=== PATIENT | female | born 1940 | race Caucasian/White ===

== ENCOUNTER 2018-11-16 20:48 | Inpatient (IN) | payer OTHER, MEDICAID ==
[2018-11-16 21:14] LABS: HEMOGLOBIN 12.2 gm/dL (12-16); MEAN CORPUSCULAR HEMOGLOBIN 20.9 pg (27.0-31.0); MEAN PLATELET VOLUME 7.6 fl; PLATELET COUNT 268 Th/cmm (150-400); RED BLOOD COUNT 5.81 Mil/cmm (3.80-5.20); RED CELL DISTRIBUTION WIDTH 14.4 % (11.5-20.0)
[2018-11-16 21:27] LABS: INR 1.06 (0.5-1.4)
[2018-11-16 21:30] LABS: ALB/GLOB RATIO 1.1 (1.0-1.8); ALBUMIN 3.6 gm/dL (3.7-5.3); ALKALINE PHOSPHATASE 80 U/L (34-104); ANION GAP 13.5 (7.0-16.0); BILIRUBIN,TOTAL 1.7 mg/dL (0.3-1.0); BUN - UREA NITROGEN 15 mg/dL (7-25); CALCIUM SERUM 9.2 mg/dL (8.6-10.3); CARBON DIOXIDE 23.5 mEq/L (21.0-31.0); CHLORIDE 101 mEq/L (98-107); CREATININE - SERUM 0.6 mg/dL (0.6-1.2); CREATININE KINASE 35 U/L (30-223); GLUCOSE 184 mg/dL (70-105); SGOT 27 U/L (13-39); SGPT/ALT 22 U/L (7-52); SODIUM SERUM 134 mEq/L (136-145); TOTAL PROTEIN,SERUM 6.8 gm/dL (6.0-8.3)
[2018-11-16] MEDS ORDERED: Sodium Chloride 0.9% 1,000 ML IV ONE (22:03)
[2018-11-16] MEDS ORDERED: cefTRIAXone 1 GM in Sodium Chloride 0.9% 50 ML IV ONE (22:03)
[2018-11-16 22:07] LABS: BAND NEUTROPHILE 0 % (0-10); EOSINOPHIL 1 % (0-5); LYMPHOCYTE 8 % (20-50); MONOCYTE 6 % (2-10); NEUTROPHILS 85 % (40-80)
[2018-11-16 22:14] LABS: % EOSINOPHILS 0.2 % (0.0-5.0); % LYMPHOCYTES 8.5 % (20.0-50.0); % MONOCYTES 5.4 % (2.0-10.0); % NEUTROPHILS 85.9 % (40.0-80.0)
[2018-11-16 22:14] LABS: URINE SOURCE MIDSTREAM
[2018-11-16 22:19] LABS: URINE BILIRUBIN NEGATIVE (NEGATIVE); URINE BLOOD MODERATE (NEGATIVE); URINE GLUCOSE (UA) NEGATIVE (NEGATIVE); URINE KETONE NEGATIVE (NEGATIVE); URINE LEUKOCYTE ESTERASE SMALL (NEGATIVE); URINE MICROSCOPIC INDICATED? YES; URINE NITRATE NEGATIVE (NEGATIVE); URINE PROTEIN NEGATIVE (NEGATIVE)
[2018-11-16 23:00] LABS: URINE CLARITY HAZY (CLEAR); URINE COLOR YELLOW
[2018-11-16 23:12] LABS: URINE BACTERIA FEW /hpf (NONE SEEN); URINE EPITHELIAL CELLS OCCASIONAL /lpf (FEW)
--- NOTE | 2018-11-16 23:46 | ED Physician Chart ---
ED Chief Complaint/HPI - Patient Information Date Seen:: 11/16/18 Time Seen:: 20:50 Chief Complaint:: Fever History of Present Illness:: onset x 2 days of fever, weakness, and lethargy; no report of trauma, LOC, ALOC , AMS, H/As, S/T, neck pain, cough, C/P, SOB, Abd. Pain, A/N/V/D/C, chills, or urinary s/s Allergies:: Allergies Allergy/AdvReac Type Severity Reaction Status Date / Time No Known Allergies Allergy Verified 11/16/18 20:49 Vitals:: Vital Signs - 8 hr 11/16/18 11/16/18 20:49 22:37 Temp 99.0 F 98 F HR 97 76 RR 20 16 BP 116/89 108/52 O2 Sat % 95 97 Historian:: Patient, EMS Review:: Nurse's Note Reviewed, Old Chart Reviewed, EMS run form Reviewed <Mikhail Jones - Last Filed: 11/17/18 06:33> - Patient Information Allergies:: Allergies Allergy/AdvReac Type Severity Reaction Status Date / Time No Known Allergies Allergy Verified 11/16/18 20:49 Vitals:: Vital Signs - 8 hr 11/17/18 11/17/18 00:39 02:08 Temp 97.2 F 97.1 F HR 72 65 RR 18 14 BP 91/49 123/63 O2 Sat % 97 98 <Riki Silva - Last Filed: 11/17/18 07:37> ED Review of Systems - Review of Systems General/Constitutional: Fever, No chills, No weight loss, No weakness, No diaphoresis, No edema, No loss of appetite Skin: No skin lesions, No rash, No bruising Head: No headache, No light-headedness Eyes: No loss of vision, No pain, No diplopia ENT: No earache, No nasal drainage, No sore throat, No tinnitus Neck: No neck pain, No swelling, No thyromegaly, No stiffness, No mass noted Cardio Vascular: No chest pain, No palpitations, No PND, No orthopnea, No edema Pulmonary: No SOB, No cough, No sputum, No wheezing GI: No nausea, No vomiting, No diarrhea, No pain, No melena, No hematochezia, No constipation, No hematemesis G/U: No dysuria, No frequency, No hematuria, No nacturia Transitional Care Manager: No vaginal discharge, No abnormal vaginal bleed, No contraction Musculoskeletal: No bone or joint pain, No back pain, No muscle pain Endocrine: No polyuria, No polydipsia Psychiatric: No prior psych history, No depression, No anxiety, No suicidal ideation, No homicidal ideation, No auditory hallucination, No visual hallucination Hematopoietic: No bruising, No lymphadenopathy Allergic/Immuno: No urticaria, No angioedema Neurological: No syncope, No focal symptoms, No weakness, No paresthesia, No headache, No seizure, No dizziness, Confusion, No vertigo <Mikhail Jones - Last Filed: 11/17/18 06:33> ED Past Medical History - Past Medical History Obtainable: Yes Past Medical History: HTN, Thyroid disorder, Dementia Family History: HTN Social History: Non Smoker, No Alcohol, No Drug Use, , Care Facility Surgical History: None Psychiatricy History: Dementia Medication: Reviewed <ElzbietayrisMikhail herring Marquise Filed: 11/17/18 06:33> Family Medical History - Family Member Mother History Unknown: Yes <Mikhail Jones Filed: 11/17/18 06:33> ED Physical Exam - Physical Examination General/Constitutional: Awake, Well-developed, well-nourished, Alert, No distress, GCS 15, Non-toxic appearing, Ambulatory Head: Atraumatic Eyes: Lids, conjuctiva normal, PERRL, EOMI Skin: Nl inspection, No rash, No skin lesions, No ecchymosis, Well hydrated, No lymphadenopathy ENMT: External ears, nose nl, TM canals nl, Nasal exam nl, Lips, teeth, gums nl , Oropharynx nl, Tonsils nl Neck: Nontender, Full ROM w/o pain, No JVD, No nuchal rigidity, No bruit, No mass, No stridor Respiratory: Nl effort/Exclusion, Clear to Auscultation, No Wheeze/Rhonchi/Rales Cardio Vascular: RRR, No murmur, gallop, rubs, NL S1 S2, Carotid/Femoral/Distal pulses equal bilaterally GI: No tenderness/rebounding/guarding, No organomegaly, No hernia, Normal BS's, Nondistended, No mass/bruits, No McBurney tenderness, Rectum exam nl Other GI comments:: no pulsatile masses : No CVA tenderness Extremities: No tenderness or effusion, Full ROM, normal strength in all extremities, No edema, Normal digits & nails Neuro/Psych: Alert/oriented, DTR's symmetric, Normal sensory exam, Normal motor strength, Judgement/insight normal, Mood normal, Normal gait, No focal deficits Misc: Normal back, No paraspinal tenderness <Mikhail Jones - Last Filed: 11/17/18 06:33> ED Labs/Radiology/EKG Results - Lab Results Results: Laboratory Tests 11/16/18 11/16/18 11/16/18 21:04 21:04 21:04 WBC 13.0 H RBC 5.81 H Hgb 12.2 Hct 38.0 L MCH 20.9 L MCHC Differential 32.0 RDW 14.4 Plt Count 268 MPV 7.6 Add Manual Diff YES Neutrophils % 85.9 H Band Neutrophils % 0 Lymphocytes % 8.5 L Monocytes % 5.4 Eosinophils % 0.2 Basophils % 0.0 Neutrophils (Manual) 85 H Lymphocytes 8 L Monocytes 6 Eosinophils 1 Microcytosis 3+ PT 11.0 INR 1.06 PTT (Actin FS) 27.2 Sodium 134 L Potassium 4.0 Chloride 101 Carbon Dioxide 23.5 Anion Gap 13.5 BUN 15 Creatinine 0.6 Est GFR ( Amer) TNP Est GFR (Non-Af Amer) TNP BUN/Creatinine Ratio 25.0 Glucose 184 H Whole Bld Lactic Acid Calcium 9.2 Total Bilirubin 1.7 H AST 27 ALT 22 Alkaline Phosphatase 80 Creatine Kinase 35 Troponin I Total Protein 6.8 Albumin 3.6 L Globulin 3.2 Albumin/Globulin Ratio 1.1 Urine Source Urine Color Urine Clarity Urine pH Ur Specific [place] Urine Protein Urine Glucose (UA) Urine Ketones Urine Blood Urine Nitrate Urine Bilirubin Urine Urobilinogen Ur Leukocyte Esterase Urine RBC Urine WBC Ur Epithelial Cells Urine Bacteria 11/16/18 11/16/18 11/16/18 21:04 21:04 21:39 WBC RBC Hgb Hct MCH MCHC Differential RDW Plt Count MPV Add Manual Diff Neutrophils % Band Neutrophils % Lymphocytes % Monocytes % Eosinophils % Basophils % Neutrophils (Manual) Lymphocytes Monocytes Eosinophils Microcytosis PT INR PTT (Actin FS) Sodium Potassium Chloride Carbon Dioxide Anion Gap BUN Creatinine Est GFR ( Amer) Est GFR (Non-Af Amer) BUN/Creatinine Ratio Glucose Whole Bld Lactic Acid 2.91 H* Calcium Total Bilirubin AST ALT Alkaline Phosphatase Creatine Kinase Troponin I 0.02 Total Protein Albumin Globulin Albumin/Globulin Ratio Urine Source [place] Urine Color YELLOW Urine Clarity HAZY Urine pH 6.0 Ur Specific [place] 1.025 Urine Protein NEGATIVE Urine Glucose (UA) NEGATIVE Urine Ketones NEGATIVE Urine Blood MODERATE H Urine Nitrate NEGATIVE Urine Bilirubin NEGATIVE Urine Urobilinogen 2.0 Ur Leukocyte Esterase SMALL H Urine RBC 5-10 H Urine WBC 2-5 Ur Epithelial Cells OCCASIONAL Urine Bacteria FEW Comments:: Reviewed - Radiology Results Comments:: NAD - EKG Interpretations EKG Time:: 21:19 Rate & Rhythm: 87; NSR Comments:: non-specific st-t changes <Mikhail Jones - Last Filed: 11/17/18 06:33> - Lab Results Results: Laboratory Tests 11/16/18 11/16/18 11/16/18 21:04 21:04 21:04 WBC 13.0 H RBC 5.81 H Hgb 12.2 Hct 38.0 L MCV 65.4 L MCH 20.9 L MCHC Differential 32.0 RDW 14.4 Plt Count 268 MPV 7.6 Add Manual Diff YES Neutrophils % 85.9 H Band Neutrophils % 0 Lymphocytes % 8.5 L Monocytes % 5.4 Eosinophils % 0.2 Basophils % 0.0 Neutrophils (Manual) 85 H Lymphocytes 8 L Monocytes 6 Eosinophils 1 Platelet Estimate ADEQUATE Microcytosis 3+ PT 11.0 INR 1.06 PTT (Actin FS) 27.2 Sodium 134 L Potassium 4.0 Chloride 101 Carbon Dioxide 23.5 Anion Gap 13.5 BUN 15 Creatinine 0.6 Est GFR ( Amer) TNP Est GFR (Non-Af Amer) TNP BUN/Creatinine Ratio 25.0 Glucose 184 H Whole Bld Lactic Acid Calcium 9.2 Total Bilirubin 1.7 H AST 27 ALT 22 Alkaline Phosphatase 80 Creatine Kinase 35 Troponin I Total Protein 6.8 Albumin 3.6 L Globulin 3.2 Albumin/Globulin Ratio 1.1 Urine Source Urine Color Urine Clarity Urine pH Ur Specific [place] Urine Protein Urine Glucose (UA) Urine Ketones Urine Blood Urine Nitrate Urine Bilirubin Urine Urobilinogen Ur Leukocyte Esterase Urine RBC Urine WBC Ur Epithelial Cells Urine Bacteria 11/16/18 11/16/18 11/16/18 21:04 21:04 21:39 WBC RBC Hgb Hct MCV MCH MCHC Differential RDW Plt Count MPV Add Manual Diff Neutrophils % Band Neutrophils % Lymphocytes % Monocytes % Eosinophils % Basophils % Neutrophils (Manual) Lymphocytes Monocytes Eosinophils Platelet Estimate Microcytosis PT INR PTT (Actin FS) Sodium Potassium Chloride Carbon Dioxide Anion Gap BUN Creatinine Est GFR ( Amer) Est GFR (Non-Af Amer) BUN/Creatinine Ratio Glucose Whole Bld Lactic Acid 2.91 H* Calcium Total Bilirubin AST ALT Alkaline Phosphatase Creatine Kinase Troponin I 0.02 Total Protein Albumin Globulin Albumin/Globulin Ratio Urine Source [place] Urine Color YELLOW Urine Clarity HAZY Urine pH 6.0 Ur Specific [place] 1.025 Urine Protein NEGATIVE Urine Glucose (UA) NEGATIVE Urine Ketones NEGATIVE Urine Blood MODERATE H Urine Nitrate NEGATIVE Urine Bilirubin NEGATIVE Urine Urobilinogen 2.0 Ur Leukocyte Esterase SMALL H Urine RBC 5-10 H Urine WBC 2-5 Ur Epithelial Cells OCCASIONAL Urine Bacteria FEW 11/17/18 00:43 WBC RBC Hgb Hct MCV MCH MCHC Differential RDW Plt Count MPV Add Manual Diff Neutrophils % Band Neutrophils % Lymphocytes % Monocytes % Eosinophils % Basophils % Neutrophils (Manual) Lymphocytes Monocytes Eosinophils Platelet Estimate Microcytosis PT INR PTT (Actin FS) Sodium Potassium Chloride Carbon Dioxide Anion Gap BUN Creatinine Est GFR ( Amer) Est GFR (Non-Af Amer) BUN/Creatinine Ratio Glucose Whole Bld Lactic Acid 1.11 Calcium Total Bilirubin AST ALT Alkaline Phosphatase Creatine Kinase Troponin I Total Protein Albumin Globulin Albumin/Globulin Ratio Urine Source Urine Color Urine Clarity Urine pH Ur Specific [place] Urine Protein Urine Glucose (UA) Urine Ketones Urine Blood Urine Nitrate Urine Bilirubin Urine Urobilinogen Ur Leukocyte Esterase Urine RBC Urine WBC Ur Epithelial Cells Urine Bacteria <Riki Silva - Last Filed: 11/17/18 07:37> ED Septic Shock - . Is Septic Shock (SBP<90, OR Lactate>4 mmol\L) present?: No - <6hrs of presentation: Vital Signs: Vital Signs - 8 hr 11/16/18 11/16/18 20:49 22:37 Temp 99.0 F 98 F HR 97 76 RR 20 16 BP 116/89 108/52 O2 Sat % 95 97 <Mikhail Jones - Last Filed: 11/17/18 06:33> - <6hrs of presentation: Vital Signs: Vital Signs - 8 hr 11/17/18 11/17/18 00:39 02:08 Temp 97.2 F 97.1 F HR 72 65 RR 18 14 BP 91/49 123/63 O2 Sat % 97 98 <Riki Silva - Last Filed: 11/17/18 07:37> ED Reassessment (Disposition) - Reassessment Reassessment Condition:: Improved - Diagnosis Diagnosis:: Fever; Leukocytosis; Anemia; Hyponatremia; UTI; Lactic Acidosis; Sepsis <Mikhail Jones - Last Filed: 11/17/18 06:33> - Reassessment Reassessment:: by Riki Silva: I checked the patient at approximately 0710. Patient's abdomen was soft without guarding. Patient was nonverbal. She appeared in no acute distress. Chest x-ray showed a retrocardiac infiltrate. I spoke to Dr. Collins at 0730 and patient to be admitted to [facility] - Patient Disposition Admitted to:: Med/Surg Spoke to:: Jalen Collins Admitting Medical Physician:: Jalen Collins Condition at Disposition:: Stable, Improved <Riki Silva - Last Filed: 11/17/18 07:37>
[2018-11-17 07:26] LABS: PLATELET ESTIMATE ADEQUATE (NORMAL)
[2018-11-17 07:27] LABS: MEAN CELL VOLUME 65.4 fl (81-100)
--- NOTE | 2018-11-17 09:14 | Diagnostic Imaging Report ---
Portable chest x-ray HISTORY: Pain The heart is enlarged. Atherosclerotic calcination seen in the aorta. No acute focal pulmonary processes. No hilar or mediastinal abnormalities. IMPRESSION: 1. Cardiomegaly with atherosclerotic vascular changes 2. No acute focal pulmonary processes
[2018-11-17] MEDS: Sodium Chloride 0.9% 1,000 ML IV SCH (10:34)
[2018-11-17] MEDS: cefTRIAXone 1 GM in Sodium Chloride 0.9% 50 ML IV SCH (10:34)
--- NOTE | 2018-11-17 13:31 | History and Physical ---
History of Present Illness - HPI Chief Complaint: Fever and weakness HPI: Patient was send from snf due to 2 days of fever and weakness. She was send for evaluation and treatment. DURING ER evaluation was found pulmonary infiltrate and Leukocytosis. Vital Signs: Last Vital Signs Temp 96.9 F 11/17/18 11:57 Pulse 66 11/17/18 11:57 Resp 17 11/17/18 11:57 BP 115/55 11/17/18 11:57 Pulse Ox 99 11/17/18 11:57 Past Medical History Cardiovascular: Report: CAD Pulmonary: Report: No Pertinent Hx MANUFACTURING MANAGER: Report: Dementia, Other (Epilepsy) GI: Report: No Pertinent Hx Psych: Report: No Pertinent Hx Musculoskeletal: Report: Muscle Atrophy, Stiffness, Other (Non ambulatory) Rheumatologic: Report: No pertinent Hx Infectious Disease: Report: No Pertinent Hx Renal/: Report: No Pertinent Hx Dermatology: Report: No Pertinent Hx - Past Surgical History Past Surgical History: No pertinent Hx Family Medical History - Family Member Mother History Unknown: Yes Social History Smoke: No Alcohol: None Drugs: None Lives: Senior Care Domestic Violence: Negative - Medications Home Medications: Home Medication Medication Instructions Recorded Type Acetaminophen [Tylenol 650mg Supp] 650 mg RC Q6HR PRN 11/16/18 History Divalproex Sprinkle [Depakote 125 mg PO BID 11/16/18 History Sprinkle] Docusate Sodium [Colace] 100 mg PO DAILY 11/16/18 History Levothyroxine Sodium 50 mcg PO DAILY 11/16/18 History Memantine [Namenda] 10 mg PO BID 11/16/18 History Multivitamin with Minerals 1 tab PO DAILY 11/16/18 History [Nature's Blend Multiple Vitamin with Minerals] [place]-3 Fatty Acids/Fish Oil [Fish 1 each PO DAILY 11/16/18 History Oil 1,000 mg Softgel] Sennosides A and B [Senna] 8.6 mg PO BID 11/16/18 History - Allergies Allergies/Adverse Reactions: Allergies Allergy/AdvReac Type Severity Reaction Status Date / Time No Known Allergies Allergy Verified 11/16/18 20:49 Review of Systems - Review of Systems Constitutional: Report: Weakness Eyes: Report: No Significant ENT: Report: No Significant Respiratory: Report: Other (Rude respiration) Cardiovascular: Report: No Significant Gastrointestinal: Report: No Significant Genitourinary: Report: No Significant Musculoskeletal: Report: No Significant Skin: Report: No Significant Neurological: Report: Weakness Physical Exam - Physical Exam HEENT: Report: Ears Nose Throat within normal limits Neck: Report: Within normal limits Cardiovascular Systems: Report: Regular, Rate and Rhythm Respiratory: Report: Rhonchi Abdomen: Report: Non-tender to palpation Back: Report: Inspection of back is within normal limits. Extremities: Report: Extremities are contracted Skin: Report: Color of skin is within normal limits Neuro/Psych: Report: Disoriented to name time or place, Other (Non responding to verbal commands.) - Lab Results All Lab Results last 24 hours: Laboratory Results - last 24 hr 11/16/18 11/16/18 11/16/18 21:04 21:04 21:04 WBC 13.0 H RBC 5.81 H Hgb 12.2 Hct 38.0 L MCV 65.4 L MCH 20.9 L MCHC Differential 32.0 RDW 14.4 Plt Count 268 MPV 7.6 Add Manual Diff YES Neutrophils % 85.9 H Band Neutrophils % 0 Lymphocytes % 8.5 L Monocytes % 5.4 Eosinophils % 0.2 Basophils % 0.0 Neutrophils (Manual) 85 H Lymphocytes 8 L Monocytes 6 Eosinophils 1 Platelet Estimate ADEQUATE Microcytosis 3+ PT 11.0 INR 1.06 PTT (Actin FS) 27.2 Sodium 134 L Potassium 4.0 Chloride 101 Carbon Dioxide 23.5 Anion Gap 13.5 BUN 15 Creatinine 0.6 Est GFR ( Amer) TNP Est GFR (Non-Af Amer) TNP BUN/Creatinine Ratio 25.0 Glucose 184 H Whole Bld Lactic Acid Calcium 9.2 Total Bilirubin 1.7 H AST 27 ALT 22 Alkaline Phosphatase 80 Creatine Kinase 35 Troponin I Total Protein 6.8 Albumin 3.6 L Globulin 3.2 Albumin/Globulin Ratio 1.1 Urine Source Urine Color Urine Clarity Urine pH Ur Specific [place] Urine Protein Urine Glucose (UA) Urine Ketones Urine Blood Urine Nitrate Urine Bilirubin Urine Urobilinogen Ur Leukocyte Esterase Urine RBC Urine WBC Ur Epithelial Cells Urine Bacteria 11/16/18 11/16/18 11/16/18 21:04 21:04 21:39 WBC RBC Hgb Hct MCV MCH MCHC Differential RDW Plt Count MPV Add Manual Diff Neutrophils % Band Neutrophils % Lymphocytes % Monocytes % Eosinophils % Basophils % Neutrophils (Manual) Lymphocytes Monocytes Eosinophils Platelet Estimate Microcytosis PT INR PTT (Actin FS) Sodium Potassium Chloride Carbon Dioxide Anion Gap BUN Creatinine Est GFR ( Amer) Est GFR (Non-Af Amer) BUN/Creatinine Ratio Glucose Whole Bld Lactic Acid 2.91 H* Calcium Total Bilirubin AST ALT Alkaline Phosphatase Creatine Kinase Troponin I 0.02 Total Protein Albumin Globulin Albumin/Globulin Ratio Urine Source [place] Urine Color YELLOW Urine Clarity HAZY Urine pH 6.0 Ur Specific [place] 1.025 Urine Protein NEGATIVE Urine Glucose (UA) NEGATIVE Urine Ketones NEGATIVE Urine Blood MODERATE H Urine Nitrate NEGATIVE Urine Bilirubin NEGATIVE Urine Urobilinogen 2.0 Ur Leukocyte Esterase SMALL H Urine RBC 5-10 H Urine WBC 2-5 Ur Epithelial Cells OCCASIONAL Urine Bacteria FEW 11/17/18 00:43 WBC RBC Hgb Hct MCV MCH MCHC Differential RDW Plt Count MPV Add Manual Diff Neutrophils % Band Neutrophils % Lymphocytes % Monocytes % Eosinophils % Basophils % Neutrophils (Manual) Lymphocytes Monocytes Eosinophils Platelet Estimate Microcytosis PT INR PTT (Actin FS) Sodium Potassium Chloride Carbon Dioxide Anion Gap BUN Creatinine Est GFR ( Amer) Est GFR (Non-Af Amer) BUN/Creatinine Ratio Glucose Whole Bld Lactic Acid 1.11 Calcium Total Bilirubin AST ALT Alkaline Phosphatase Creatine Kinase Troponin I Total Protein Albumin Globulin Albumin/Globulin Ratio Urine Source Urine Color Urine Clarity Urine pH Ur Specific [place] Urine Protein Urine Glucose (UA) Urine Ketones Urine Blood Urine Nitrate Urine Bilirubin Urine Urobilinogen Ur Leukocyte Esterase Urine RBC Urine WBC Ur Epithelial Cells Urine Bacteria - Assessment Assessment: Patient is awake, alert, not following verbal commands, in no acute distress. Dx: Sepsis, Leukocytosis secondary to PNA, Dementia, Epilepsy, Hypothyroidism, Non verbal, non ambulatory, DNR. - Plan Plan: Patient in IV NS, IV AB, Continue with SNF meds. Same diet, will continue to monitor.
[2018-11-17 14:14] VITALS: BP 108/79
--- NOTE | 2018-11-17 15:08 | Consultation ---
Consult Note - Consult Note Consult Note: PHYSICIAN Consultation Note: Date of Admission: 11/17/18 Purpose of Consultation: Chief Complaint: History of Present Illness: Patient BEAU BARRERA was admitted to location Medical/Surgical Unit I with PNEUMONIA. Past Medical History: Allergies Allergy/AdvReac Type Severity Reaction Status Date / Time No Known Allergies Allergy Verified 11/16/18 20:49 Vital Signs Temp 96.9 F 11/17/18 11:57 Pulse 66 11/17/18 11:57 Resp 17 11/17/18 11:57 BP 115/55 11/17/18 11:57 Pulse Ox 99 11/17/18 11:57 Intake & Output 11/16/18 11/17/18 11/17/18 18:59 06:59 18:59 Weight (lbs) 42.638 kg Other: Weight Source Estimated Laboratory Results - last 24 hr 11/16/18 11/16/18 11/16/18 21:04 21:04 21:04 WBC 13.0 H RBC 5.81 H Hgb 12.2 Hct 38.0 L MCV 65.4 L MCH 20.9 L MCHC Differential 32.0 RDW 14.4 Plt Count 268 MPV 7.6 Add Manual Diff YES Neutrophils % 85.9 H Band Neutrophils % 0 Lymphocytes % 8.5 L Monocytes % 5.4 Eosinophils % 0.2 Basophils % 0.0 Neutrophils (Manual) 85 H Lymphocytes 8 L Monocytes 6 Eosinophils 1 Platelet Estimate ADEQUATE Microcytosis 3+ PT 11.0 INR 1.06 PTT (Actin FS) 27.2 Sodium 134 L Potassium 4.0 Chloride 101 Carbon Dioxide 23.5 Anion Gap 13.5 BUN 15 Creatinine 0.6 Est GFR ( Amer) TNP Est GFR (Non-Af Amer) TNP BUN/Creatinine Ratio 25.0 Glucose 184 H Whole Bld Lactic Acid Calcium 9.2 Total Bilirubin 1.7 H AST 27 ALT 22 Alkaline Phosphatase 80 Creatine Kinase 35 Troponin I Total Protein 6.8 Albumin 3.6 L Globulin 3.2 Albumin/Globulin Ratio 1.1 Urine Source Urine Color Urine Clarity Urine pH Ur Specific [place] Urine Protein Urine Glucose (UA) Urine Ketones Urine Blood Urine Nitrate Urine Bilirubin Urine Urobilinogen Ur Leukocyte Esterase Urine RBC Urine WBC Ur Epithelial Cells Urine Bacteria 11/16/18 11/16/18 11/16/18 21:04 21:04 21:39 WBC RBC Hgb Hct MCV MCH MCHC Differential RDW Plt Count MPV Add Manual Diff Neutrophils % Band Neutrophils % Lymphocytes % Monocytes % Eosinophils % Basophils % Neutrophils (Manual) Lymphocytes Monocytes Eosinophils Platelet Estimate Microcytosis PT INR PTT (Actin FS) Sodium Potassium Chloride Carbon Dioxide Anion Gap BUN Creatinine Est GFR ( Amer) Est GFR (Non-Af Amer) BUN/Creatinine Ratio Glucose Whole Bld Lactic Acid 2.91 H* Calcium Total Bilirubin AST ALT Alkaline Phosphatase Creatine Kinase Troponin I 0.02 Total Protein Albumin Globulin Albumin/Globulin Ratio Urine Source [place] Urine Color YELLOW Urine Clarity HAZY Urine pH 6.0 Ur Specific [place] 1.025 Urine Protein NEGATIVE Urine Glucose (UA) NEGATIVE Urine Ketones NEGATIVE Urine Blood MODERATE H Urine Nitrate NEGATIVE Urine Bilirubin NEGATIVE Urine Urobilinogen 2.0 Ur Leukocyte Esterase SMALL H Urine RBC 5-10 H Urine WBC 2-5 Ur Epithelial Cells OCCASIONAL Urine Bacteria FEW 11/17/18 00:43 WBC RBC Hgb Hct MCV MCH MCHC Differential RDW Plt Count MPV Add Manual Diff Neutrophils % Band Neutrophils % Lymphocytes % Monocytes % Eosinophils % Basophils % Neutrophils (Manual) Lymphocytes Monocytes Eosinophils Platelet Estimate Microcytosis PT INR PTT (Actin FS) Sodium Potassium Chloride Carbon Dioxide Anion Gap BUN Creatinine Est GFR ( Amer) Est GFR (Non-Af Amer) BUN/Creatinine Ratio Glucose Whole Bld Lactic Acid 1.11 Calcium Total Bilirubin AST ALT Alkaline Phosphatase Creatine Kinase Troponin I Total Protein Albumin Globulin Albumin/Globulin Ratio Urine Source Urine Color Urine Clarity Urine pH Ur Specific [place] Urine Protein Urine Glucose (UA) Urine Ketones Urine Blood Urine Nitrate Urine Bilirubin Urine Urobilinogen Ur Leukocyte Esterase Urine RBC Urine WBC Ur Epithelial Cells Urine Bacteria Home Medication Medication Instructions Recorded Type Acetaminophen [Tylenol 650mg Supp] 650 mg RC Q6HR PRN 11/16/18 History Divalproex Sprinkle [Depakote 125 mg PO BID 11/16/18 History Sprinkle] Docusate Sodium [Colace] 100 mg PO DAILY 11/16/18 History Levothyroxine Sodium 50 mcg PO DAILY 11/16/18 History Memantine [Namenda] 10 mg PO BID 11/16/18 History Multivitamin with Minerals 1 tab PO DAILY 11/16/18 History [Nature's Blend Multiple Vitamin with Minerals] [place]-3 Fatty Acids/Fish Oil [Fish 1 each PO DAILY 11/16/18 History Oil 1,000 mg Softgel] Sennosides A and B [Senna] 8.6 mg PO BID 11/16/18 History Current Medications Generic Name Dose Route Start Last Admin Trade Name Freq PRN Reason Stop Dose Admin Acetaminophen 650 mg 11/17/18 13:43 Tylenol 650mg Supp RC 01/16/19 13:42 Q6HR PRN Pain (Mild) Divalproex Sodium 125 mg 11/17/18 17:00 Depakote Sprinkle PO 01/16/19 16:59 BID CELINA Protocol Docusate Sodium 100 mg 11/17/18 13:45 Colace PO 01/16/19 13:44 DAILY CELINA Fish Oil 1,000 mg 11/18/18 09:00 [place] 3 PO 01/17/19 08:59 DAILY CELINA Ceftriaxone Sodium 1 gm/ 50 mls @ 100 mls/hr 11/17/18 07:45 11/17/18 10:34 Sodium Chloride IV 01/16/19 07:44 100 mls/hr Q24HR CELINA Administration Sodium Chloride 1,000 mls @ 80 mls/hr 11/17/18 07:45 11/17/18 10:34 Nacl 0.9% IV 01/16/19 07:44 80 mls/hr .[id number] CELINA Administration Influenza Virus Vaccine 0.5 ml 11/18/18 08:00 Flu Ad IM 11/18/18 08:01 .ONCE ONE Levothyroxine Sodium 0.05 mg 11/17/18 13:45 Synthroid PO 01/16/19 13:44 DAILY CELINA Memantine 10 mg 11/17/18 17:00 Namenda PO 01/16/19 16:59 BID CELINA Senna 8.6 mg 11/17/18 17:00 Senna PO 01/16/19 16:59 BID CELINA Review of Systems: A 12 point ROS was reviewed with the pertinent positive and negatives noted in the HPI. Social History Smoking Status Never smoker Drug Use No Alcohol Use No Family Medical History Family Medical History Start: 11/17/18 08: 36 Freq: ONCE Status: Active Protocol: Document 11/17/18 08:36 DANIEL (Rec: 11/17/18 09:41 DANIEL [id number]) Family Medical History Mother History Unknown Yes Physical Exam: General: HEENT: Neck: Cardio: Respiratory: Abdominal: Genital/Urinary: Extremities: Neurological: Assessment: Plan: Signed, William Fall M.D. [id number]
[2018-11-17] MEDS: Levothyroxine 0.05 Mg Tab PO SCH (15:12)
[2018-11-18] MEDS: Sodium Chloride 0.9% 1,000 ML IV SCH (01:47)
--- NOTE | 2018-11-18 05:25 | Consultation ---
DATE OF CONSULTATION: 11/17/2018 INFECTIOUS DISEASE CONSULTATION REFERRING PHYSICIAN: Dr. Collins. REASON FOR CONSULTATION: Pneumonia. HISTORY OF PRESENT ILLNESS: The patient is a 78-year-old female with a past medical history of hypertension, thyroid disorder, dementia, brought to the facility for fever. She also has a history of generalized weakness and lethargy. The patient unable to give any history. On initial evaluation, the patient's temperature was 99 degrees Fahrenheit, pulse was 97 and WBC count was 13,000 with neutrophil 86%. Lactic acid was also 2.91. Chest x-ray suggested no acute cardiopulmonary disease and urinalysis suggested mild pyuria and bacteriuria. The patient also found to have left black eye. ID consult was called for further antibiotic management. Meanwhile, the patient was started on Rocephin. PAST MEDICAL HISTORY: Includes dementia, hypertension, and hypothyroidism. FAMILY HISTORY: Hypertension. SOCIAL HISTORY: The patient lives at nursing facility, . No history of smoking, alcohol or drug use. PAST SURGICAL HISTORY: None. PSYCHIATRIC HISTORY: Dementia. REVIEW OF SYSTEMS: Unable to obtain any history, but the patient had fever at the facility. PHYSICAL EXAMINATION: CURRENT VITAL SIGNS: Shows temperature is 96.9, pulse 66, respirations 17, blood pressure 115/55. GENERAL: The patient is comfortable lying in the bed, not in acute distress. HEENT: Head is normocephalic, atraumatic. Oral cavity moist, pink. Eyes: Pallor is present, no icterus. Pupils PERRLA, EOMI. NECK: Supple, no JVD, no bruit. Trachea midline. CHEST: Bilateral breath sounds. Occasional crackles. HEART: S1, S2 within normal limits. Regular rhythm. No murmur, no gallop. ABDOMEN: Soft, nontender, nondistended. Bowel sounds present. EXTREMITIES: No cyanosis, no clubbing, no edema. NEUROLOGIC: Arousable, but unable to communicate at this time. LABORATORY DATA: Current lab shows WBC count is 13,000, hemoglobin is 12.2, platelets are 268,000, neutrophil is 86%. INR 1.06. Sodium 134, potassium 4, chloride 101, bicarbonate 23, BUN 15, creatinine 0.6, glucose is 184 and lactic acid is 1.1. Urinalysis showed a small leukoesterase, WBC 2-5 and few bacteria, moderate blood. Chest x-ray showed cardiomegaly, no acute ____. IMPRESSION: 1. Leukocytosis, suspect sepsis. 2. Urinary tract infection. 3. May have aspiration pneumonia. 4. Black eye. 5. Hypertension. 6. Dementia. RECOMMENDATIONS: We will continue Dulce. JOB# [id number]
[2018-11-18 06:20] LABS: MEAN CORPUSCULAR HEMOGLOBIN 20.5 pg (27.0-31.0); MEAN CORPUSCULAR HGB CONC 31.3 pg (28.0-36.0); MEAN PLATELET VOLUME 8.1 fl; PLATELET COUNT 284 Th/cmm (150-400); RED BLOOD COUNT 5.35 Mil/cmm (3.80-5.20); RED CELL DISTRIBUTION WIDTH 14.3 % (11.5-20.0); WHITE BLOOD COUNT 6.1 Th/cmm (4.8-10.8)
[2018-11-18 07:01] LABS: MEAN CELL VOLUME 65.1 fl (81-100)
[2018-11-18 07:05] LABS: BAND NEUTROPHILE 1 % (0-10); BASOPHIL 0 % (0-3); EOSINOPHIL 1 % (0-5); LYMPHOCYTE 30 % (20-50); MONOCYTE 13 % (2-10); NEUTROPHILS 55 % (40-80)
[2018-11-18 07:17] LABS: ALB/GLOB RATIO 1.1 (1.0-1.8); ALBUMIN 2.9 gm/dL (3.7-5.3); ALKALINE PHOSPHATASE 54 U/L (34-104); ANION GAP 9.3 (7.0-16.0); BILIRUBIN,TOTAL 0.8 mg/dL (0.3-1.0); BUN - UREA NITROGEN 10 mg/dL (7-25); CALCIUM SERUM 8.7 mg/dL (8.6-10.3); CARBON DIOXIDE 26.2 mEq/L (21.0-31.0); CHLORIDE 107 mEq/L (98-107); GLUCOSE 83 mg/dL (70-105); POTASSIUM SERUM 3.5 mEq/L (3.5-5.1); SGOT 12 U/L (13-39); SGPT/ALT 13 U/L (7-52); SODIUM SERUM 139 mEq/L (136-145); TOTAL PROTEIN,SERUM 5.6 gm/dL (6.0-8.3)
[2018-11-18] MEDS ORDERED: Influenza Vaccine (65 yr & older) 0.5 ml Syr IM ONE (08:00)
[2018-11-18] MEDS: cefTRIAXone 1 GM in Sodium Chloride 0.9% 50 ML IV SCH (08:47)
[2018-11-18] MEDS: Levothyroxine 0.05 Mg Tab PO SCH (08:49)
[2018-11-18] MEDS ORDERED: Multivitamin w/ Minerals Tab PO SCH (09:00)
[2018-11-18] MEDS ORDERED: Fish Oil 1,000 MG SGL PO SCH (09:00)
--- NOTE | 2018-11-18 09:27 | General Progress Note ---
Subjective - Review of Systems Service Date: 11/18/18 Subjective: Patient non verbal Objective - Results Result Diagrams: 11/18/18 05:00 11/18/18 05:00 Recent Labs: Laboratory Last Values WBC 6.1 Th/cmm (4.8-10.8) 11/18/18 05:00 RBC 5.35 Mil/cmm (3.80-5.20) H 11/18/18 05:00 Hgb 11.0 gm/dL (12-16) L 11/18/18 05:00 Hct 35.0 % (41.0-60) L 11/18/18 05:00 MCV 65.1 fl (81-100) L 11/18/18 05:00 MCH 20.5 pg (27.0-31.0) L 11/18/18 05:00 MCHC Differential 31.3 pg (28.0-36.0) 11/18/18 05:00 RDW 14.3 % (11.5-20.0) 11/18/18 05:00 Plt Count 284 Th/cmm (150-400) 11/18/18 05:00 MPV 8.1 fl 11/18/18 05:00 Add Manual Diff YES 11/18/18 05:00 Neutrophils % [employer] 11/18/18 05:00 Band Neutrophils % 1 % (0-10) 11/18/18 05:00 Lymphocytes % [employer]IATE 11/18/18 05:00 Monocytes % [employer] ASS[employer]IATE 11/18/18 05:00 Eosinophils % [employer]IATE 11/18/18 05:00 Basophils % [employer]IATE 11/18/18 05:00 Neutrophils (Manual) 55 % (40-80) 11/18/18 05:00 Lymphocytes 30 % (20-50) 11/18/18 05:00 Monocytes 13 % (2-10) H 11/18/18 05:00 Eosinophils 1 % (0-5) 11/18/18 05:00 Basophils 0 % (0-3) 11/18/18 05:00 Platelet Estimate ADEQUATE (NORMAL) 11/16/18 21:04 Microcytosis 3+ 11/18/18 05:00 PT 11.0 SECONDS (9.5-11.5) 11/16/18 21:04 INR 1.06 (0.5-1.4) 11/16/18 21:04 PTT (Actin FS) 27.2 SECONDS (26.0-38.0) 11/16/18 21:04 Sodium 139 mEq/L (136-145) 11/18/18 05:00 Potassium 3.5 mEq/L (3.5-5.1) 11/18/18 05:00 Chloride 107 mEq/L (98-107) 11/18/18 05:00 Carbon Dioxide 26.2 mEq/L (21.0-31.0) 11/18/18 05:00 Anion Gap 9.3 (7.0-16.0) 11/18/18 05:00 BUN 10 mg/dL (7-25) 11/18/18 05:00 Creatinine 1.0 mg/dL (0.6-1.2) 11/18/18 05:00 Est GFR ( Amer) TNP 11/18/18 05:00 Est GFR (Non-Af Amer) TNP 11/18/18 05:00 BUN/Creatinine Ratio 10.0 11/18/18 05:00 Glucose 83 mg/dL (70-105) 11/18/18 05:00 Whole Bld Lactic Acid 1.11 mmol/L (0.60-1.99) 11/17/18 00:43 Calcium 8.7 mg/dL (8.6-10.3) 11/18/18 05:00 Total Bilirubin 0.8 mg/dL (0.3-1.0) 11/18/18 05:00 AST 12 U/L (13-39) L 11/18/18 05:00 ALT 13 U/L (7-52) 11/18/18 05:00 Alkaline Phosphatase 54 U/L (34-104) 11/18/18 05:00 Creatine Kinase 35 U/L (30-223) 11/16/18 21:04 Troponin I 0.02 ng/mL (0.01-0.05) 11/16/18 21:04 Total Protein 5.6 gm/dL (6.0-8.3) L 11/18/18 05:00 Albumin 2.9 gm/dL (3.7-5.3) L 11/18/18 05:00 Globulin 2.7 gm/dL 11/18/18 05:00 Albumin/Globulin Ratio 1.1 (1.0-1.8) 11/18/18 05:00 TSH 7.48 uIU/ml (0.34-5.60) H 11/18/18 05:00 Urine Source MIDSTREAM 11/16/18 21:39 Urine Color YELLOW 11/16/18 21:39 Urine Clarity HAZY (CLEAR) 11/16/18 21:39 Urine pH 6.0 (4.6 - 8.0) 11/16/18 21:39 Ur Specific Ewing 1.025 (1.005-1.030) 11/16/18 21:39 Urine Protein NEGATIVE mg/dL (NEGATIVE) 11/16/18 21:39 Urine Glucose (UA) NEGATIVE mg/dL (NEGATIVE) 11/16/18 21:39 Urine Ketones NEGATIVE mg/dL (NEGATIVE) 11/16/18 21:39 Urine Blood MODERATE (NEGATIVE) H 11/16/18 21:39 Urine Nitrate NEGATIVE (NEGATIVE) 11/16/18 21:39 Urine Bilirubin NEGATIVE (NEGATIVE) 11/16/18 21:39 Urine Urobilinogen 2.0 E.U./dL (0.2 - 1.0) 11/16/18 21:39 Ur Leukocyte Esterase SMALL (NEGATIVE) H 11/16/18 21:39 Urine RBC 5-10 /hpf (0-5) H 11/16/18 21:39 Urine WBC 2-5 /hpf (0-5) 11/16/18 21:39 Ur Epithelial Cells OCCASIONAL /lpf (FEW) 11/16/18 21:39 Urine Bacteria FEW /hpf (NONE SEEN) 11/16/18 21:39 - Physical Exam Vitals and I&O: Vital Signs Temp 98.1 F 11/18/18 07:54 Pulse 73 11/18/18 07:54 Resp 18 11/18/18 07:54 BP 110/78 11/18/18 07:54 Pulse Ox 100 11/18/18 07:54 Intake & Output 11/17/18 11/18/18 11/18/18 18:59 06:59 18:59 Intake Total 50 1000 Balance 50 1000 Weight (lbs) 42.638 kg 42.638 kg Intake: Intake, IV Amount 50 1000 Sodium Chloride 0.9% 1, 1000 000 ml @ 80 mls/hr IV . [id number] [facility] Rx#:[id number] cefTRIAXone 1 gm In 50 Sodium Chloride 0.9% 50 ml @ 100 mls/hr IV Q24HR [facility] Rx#:[id number] Other: # Voids 2 3 # Bowel Movements 1 Weight Source Bedscale Bedscale Active Medications: Current Medications Acetaminophen (Tylenol 650mg Supp) 650 mg RC Q6HR PRN PRN Reason: Pain (Mild) Stop: 01/16/19 13:42 Divalproex Sodium (Depakote Sprinkle) 125 mg PO BID [facility]; Protocol Stop: 01/16/19 16:59 Last Admin: 11/18/18 08:49 Dose: 125 mg Docusate Sodium (Colace) 100 mg PO DAILY [facility] Stop: 01/16/19 13:44 Last Admin: 11/18/18 08:49 Dose: 100 mg Fish Oil (Verbank 3) 1,000 mg PO DAILY [facility] Stop: 01/17/19 08:59 Last Admin: 11/18/18 08:48 Dose: 1,000 mg Ceftriaxone Sodium 1 gm/ (Sodium Chloride) 50 mls @ 100 mls/hr IV Q24HR [facility] Stop: 01/16/19 07:44 Last Admin: 11/18/18 08:47 Dose: 100 mls/hr Sodium Chloride (Nacl 0.9%) 1,000 mls @ 80 mls/hr IV .[id number] [facility] Stop: 01/16/19 07:44 Last Admin: 11/18/18 01:47 Dose: 80 mls/hr Levothyroxine Sodium (Synthroid) 0.05 mg PO DAILY [facility] Stop: 01/16/19 13:44 Last Admin: 11/18/18 08:49 Dose: 0.05 mg Memantine (Namenda) 10 mg PO BID [facility] Stop: 01/16/19 16:59 Last Admin: 11/18/18 08:49 Dose: 10 mg Senna (Senna) 8.6 mg PO BID [facility] Stop: 01/16/19 16:59 Last Admin: 11/18/18 08:49 Dose: 8.6 mg General: No acute distress HEENT: Atraumatic Neck: Supple Cardiovascular: Regular rate Lungs: Other (Rude respiration) Abdomen: Bowel sounds, Soft Extremities: Other Neurological: Other (Non ambulatorty) Skin: Other Psych/Mental Status: Other (Patient is confused) Assessment/Plan - Assessment Assessment: Patient is awake, alert, not following verbal commands, in no acute distress. WBC improved. Dx: Leukocytosis secondary to PNA, Dementia, Epilepsy, Hypothyroidism, Non verbal, non ambulatory, DNR. - Plan Plan: Patient in IV NS, IV AB, Continue with SNF meds. Same diet, Ptient follow by ID. Will continue to monitor.
--- NOTE | 2018-11-19 11:48 | Discharge Summary ---
General Discharge Summary - Discharge Summary Disposition: TRANSFER TO ACUTE HOSP Home Medications: Home Medication Medication Instructions Recorded Type Acetaminophen [Tylenol 650mg Supp] 650 mg RC Q6HR PRN 11/16/18 History Divalproex Sprinkle [Depakote 125 mg PO BID 11/16/18 History Sprinkle] Docusate Sodium [Colace] 100 mg PO DAILY 11/16/18 History Levothyroxine Sodium 50 mcg PO DAILY 11/16/18 History Memantine [Namenda] 10 mg PO BID 11/16/18 History Multivitamin with Minerals 1 tab PO DAILY 11/16/18 History [Nature's Blend Multiple Vitamin with Minerals] Randolph-3 Fatty Acids/Fish Oil [Fish 1 each PO DAILY 11/16/18 History Oil 1,000 mg Softgel] Sennosides A and B [Senna] 8.6 mg PO BID 11/16/18 History Consults and Follow-Up: JAISON NEWMAN DO [Other] not on staff,PCP is [Primary Care Provider] - Instructions: Pneumonia, Adult, [id number]
== END 2018-11-18 11:35 | disposition short-term general hospital (02) | DRG 871 ==
LOC: ER 20:48 → MSI 11-17 08:30
PROVIDERS: ADMIT General Practice; ATTEND General Practice
DX: A41.9 Sepsis, unspecified organism (principal); J18.9 Pneumonia, unspecified organism; N39.0 Urinary tract infection, site not specified; E87.1 Hypo-osmolality and hyponatremia; F03.90 Unspecified dementia, unspecified severity, without behavioral disturbance, psychotic disturbance, mood disturbance, and anxiety; G40.909 Epilepsy, unspecified, not intractable, without status epilepticus; Z66 Do not resuscitate; I10 Essential (primary) hypertension; D64.9 Anemia, unspecified; I25.10 Atherosclerotic heart disease of native coronary artery without angina pectoris; E03.9 Hypothyroidism, unspecified; Z82.49 Family history of ischemic heart disease and other diseases of the circulatory system
CPT/HCPCS: 36415-UA; 71045-TC; 80053-TC; 81001-TC; 82550-TC; 83036-90; 83605; 84443-TC; 84484-TC; 85007-TC; 85025-TC; 85610-TC; 85730-TC; 87086-90; 93005; 94760; J0696; J7030